=== PATIENT | male | born 1955 | race Hispanic/Latino ===

== ENCOUNTER 2021-09-14 20:33 | Emergency (ER) | payer MEDICARE ==
[~2021-09-14 20:33] MED LIST: EPINEPHRINE 1MG SYG 10ML ONE; SODIUM BICARB 8.4% 50ML SYRINGE ONE
== END 2021-09-14 20:41 ==
LOC: EDH 20:33
DX: I46.9 Cardiac arrest, cause unspecified (principal)
CPT/HCPCS: 31500; 92950; 99291; J0171; J3490